=== PATIENT | male | born 1995 | race Caucasian/White ===

== ENCOUNTER 2023-12-23 16:11 | Emergency (ER) | payer OTHER ==
[~2023-12-23] VITALS: Ht 188 cm; Wt 204.1 kg
[2023-12-23 16:30] VITALS: BP 155/97; PULSE 81; RESP 18; TEMP 97.2; O2SAT 96
[2023-12-23] MEDS ORDERED: DOXY-487 PO (17:37)
[2023-12-23] MEDS: DEXAMETHASONE 10 MG/ML VIAL IM ONE (18:21)
== END 2023-12-23 18:39 | disposition home or self-care (01) ==
LOC: MED 16:11
DX: A53.9 Syphilis, unspecified (principal); J02.0 Streptococcal pharyngitis; I10 Essential (primary) hypertension; F17.210 Nicotine dependence, cigarettes, uncomplicated; Z79.899 Other long term (current) drug therapy
CPT/HCPCS: 96372; 99283; J1100